=== PATIENT | male | born 1945 | race African-American/Black ===

== ENCOUNTER 2022-01-07 22:23 | Inpatient (IN) | payer MEDICARE, BC ==
[~2022-01-07] VITALS: Ht 175.3 cm; Wt 74.4 kg
[2022-01-07] MEDS ORDERED: FURO20TA4 PO (22:52)
[2022-01-07] MEDS ORDERED: ACET125T3 PO (22:52)
[2022-01-07] MEDS ORDERED: LEVE500T20 PO (22:52)
[2022-01-07] MEDS ORDERED: ENAL-80 PO (22:52)
[2022-01-07] MEDS ORDERED: MEMA10TA PO (22:52)
[2022-01-07] MEDS ORDERED: DONE10TA44 PO (22:52)
--- NOTE | 2022-01-07 23:00 | NUR ---
Pt. BIB ambulance from another ER hospital. VSS at this time. laying in bed, eyes open.
--- NOTE | 2022-01-08 02:03 | NUR ---
Endorsed pt to [facility] from [facility] unit, will transfer pt. to RM 145A, x1 Large BM noted, perineal care done.
[2022-01-08] MEDS ORDERED: MAGNESIUM HYDROXIDE 30 ML LIQUID UDC PO PRN (02:15)
[2022-01-08] MEDS ORDERED: ACETAMINOPHEN 325 MG TABLET PO PRN (02:15)
[2022-01-08] MEDS ORDERED: MAG HYDROX/AL HYDROX/SIMETH 30 ML LIQUID UDC PO PRN (02:15)
[2022-01-08] MEDS ORDERED: TEMAZEPAM 7.5 MG CAPSULE PO PRN (02:15)
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
[2022-01-08 02:54] VITALS: BP 155/79
[2022-01-08 07:30] VITALS: BP 152/79
[2022-01-08 07:59] LABS: MAGNESIUM 1.8 mg/dL (1.8-2.4)
[2022-01-08] MEDS: DIVALPROEX 125 MG TABLET.DR PO SCH ×2 (09:40→21:32)
[2022-01-08] MEDS ORDERED: QUET25TA36 PO (11:14)
[2022-01-08] MEDS ORDERED: ASPI81TA31 PO (11:14)
[2022-01-08] MEDS ORDERED: TAMS-3 PO (11:14)
[2022-01-08] MEDS ORDERED: QUET50TA24 PO (11:14)
[2022-01-08] MEDS: TAMSULOSIN HCL 0.4 MG CAP.SR.24H PO SCH (12:12)
[2022-01-08] MEDS: ASPIRIN 81 MG TAB.CHEW PO SCH (12:12)
[2022-01-08] MEDS: levETIRAcetam 500 MG TABLET PO SCH ×2 (12:12→21:33)
[2022-01-08] MEDS: ENALAPRIL 10 MG TABLET PO SCH (12:12)
[2022-01-08] MEDS: FUROSEMIDE 20 MG TABLET PO SCH (12:12)
[2022-01-08] MEDS: ACETAzolamide 250 MG TABLET PO SCH ×2 (12:13→21:32)
--- NOTE | 2022-01-08 12:14 | NUR ---
GERMAN Initial Discharge Note: Pt currently resides at home located at [address] [place] [address] with his , Maria D ([phone]). Per pt's , Maria D, she would like him to discharge to a memory care unit or mcfp facility. Maria D stated she is looking and will contact the SW to provide further details for continuation of care prior to discharge. GERMAN will continue to work with pt, family and MD to ensure a safe and proper discharge plan.
--- NOTE | 2022-01-08 12:15 | NUR ---
SW Family Contact: Per pt's , Maria D, she would like him to discharge to a memory care unit or correction facility. Maria D stated she is looking and will contact the SW to provide further details for continuation of care prior to discharge.
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
[2022-01-08 16:21] VITALS: BP 132/58
[2022-01-08] MEDS ORDERED: ACETAZOLAMIDE 125 MG PO SCH (17:00)
[2022-01-08 19:59] VITALS: BP 134/72
[2022-01-08] MEDS: QUETIAPINE FUMARATE 25 MG TABLET PO SCH (21:32)
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
[2022-01-09 07:30] VITALS: BP_SYST 104; BP_SYST 132; BP_DIAS 61; BP_DIAS 65
[2022-01-09] MEDS: ACETAzolamide 250 MG TABLET PO SCH ×3 (09:00→16:03)
[2022-01-09] MEDS: levETIRAcetam 500 MG TABLET PO SCH ×3 (09:00→16:03)
[2022-01-09] MEDS: DIVALPROEX 125 MG TABLET.DR PO SCH ×3 (09:00→20:25)
[2022-01-09] MEDS: ASPIRIN 81 MG TAB.CHEW PO SCH ×2 (09:00→09:19)
[2022-01-09] MEDS: FUROSEMIDE 20 MG TABLET PO SCH ×2 (09:00→09:19)
[2022-01-09] MEDS: ENALAPRIL 10 MG TABLET PO SCH ×2 (09:00→09:22)
[2022-01-09] MEDS: TAMSULOSIN HCL 0.4 MG CAP.SR.24H PO SCH ×2 (09:00→09:19)
--- NOTE | 2022-01-09 15:48 | NUR ---
received patient up to dalila-chair in TV room , patient is confused and disoriented ,refused all AM medication , made aware.
[2022-01-09 16:00] VITALS: BP 112/61
[2022-01-09 20:24] VITALS: BP 137/57
[2022-01-09] MEDS: CLONAZEPAM 0.5 MG TABLET PO SCH (20:26)
[2022-01-09] MEDS: QUETIAPINE FUMARATE 25 MG TABLET PO SCH (20:26)
--- NOTE | 2022-01-10 04:44 | NUR ---
Patient is less interactive tonight , than last night. Medication compliant however. Assist with a shower and minimal combativeness noted. Patient was able to feed himself snack and drinks fluids without difficulty. Reorientation ongoing. The patient is disoriented and forgetful. Safety Stratiges are in place. Frequent diaper changes and trips to the bathroom , gait unsteady, bed alarm on . Continuing to monitor this patient for behavior escalation and combativeness with the staff providing care.
[2022-01-10 07:46] VITALS: BP 123/63
[2022-01-10] MEDS: TAMSULOSIN HCL 0.4 MG CAP.SR.24H PO SCH (08:43)
[2022-01-10] MEDS: DIVALPROEX 125 MG TABLET.DR PO SCH ×2 (08:43→21:44)
[2022-01-10] MEDS: levETIRAcetam 500 MG TABLET PO SCH ×2 (08:43→17:00)
[2022-01-10] MEDS: ASPIRIN 81 MG TAB.CHEW PO SCH (08:43)
[2022-01-10] MEDS: FUROSEMIDE 20 MG TABLET PO SCH (08:43)
[2022-01-10] MEDS: ACETAzolamide 250 MG TABLET PO SCH ×2 (08:45→17:00)
[2022-01-10] MEDS: ENALAPRIL 10 MG TABLET PO SCH (08:47)
--- NOTE | 2022-01-10 18:40 | NUR ---
patient is confused and disoriented assisted patient up to dalila-chair, patient able to attend in group activity .denies any SI/HI with poor insight and poor judgement , refused 5 pm medication ,medication education given will continue close monitoring.
[2022-01-10 20:30] VITALS: BP 98/59
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
[2022-01-10] MEDS: QUETIAPINE FUMARATE 25 MG TABLET PO SCH (21:44)
[2022-01-11 07:47] VITALS: BP 120/55
[2022-01-11] MEDS: ASPIRIN 81 MG TAB.CHEW PO SCH (09:11)
[2022-01-11] MEDS: ACETAzolamide 250 MG TABLET PO SCH ×2 (09:11→16:34)
[2022-01-11] MEDS: ENALAPRIL 10 MG TABLET PO SCH (09:11)
[2022-01-11] MEDS: FUROSEMIDE 20 MG TABLET PO SCH (09:11)
[2022-01-11] MEDS: levETIRAcetam 500 MG TABLET PO SCH ×2 (09:11→16:34)
[2022-01-11] MEDS: DIVALPROEX 125 MG TABLET.DR PO SCH ×2 (09:11→20:10)
[2022-01-11] MEDS: TAMSULOSIN HCL 0.4 MG CAP.SR.24H PO SCH (09:12)
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
[2022-01-11 16:12] VITALS: BP 107/62
[2022-01-11 19:55] VITALS: BP 112/59
[2022-01-11] MEDS: QUETIAPINE FUMARATE 25 MG TABLET PO SCH (20:10)
[2022-01-12 07:30] VITALS: BP 142/78
[2022-01-12] MEDS: TAMSULOSIN HCL 0.4 MG CAP.SR.24H PO SCH (08:54)
[2022-01-12] MEDS: FUROSEMIDE 20 MG TABLET PO SCH (08:54)
[2022-01-12] MEDS: ASPIRIN 81 MG TAB.CHEW PO SCH (08:54)
[2022-01-12] MEDS: levETIRAcetam 500 MG TABLET PO SCH ×2 (08:54→16:52)
[2022-01-12] MEDS: DIVALPROEX 125 MG TABLET.DR PO SCH ×3 (08:55→16:52)
[2022-01-12] MEDS: ACETAzolamide 250 MG TABLET PO SCH ×2 (08:55→16:52)
[2022-01-12] MEDS: ENALAPRIL 10 MG TABLET PO SCH (08:55)
[2022-01-12] MEDS: ENSURE ENLIVE (VAN) 240 ML LIQUID PO SCH (14:26)
[2022-01-12 15:38] VITALS: BP 100/54
--- NOTE | 2022-01-12 16:16 | NUR ---
Patient is received awake in the hallway. A/O X 2 to person. Patient is withdrawn, quiet, calm most of time, few angry episodes and outbursts, redirectable, confused, forgetful, disorganized. Patient requires more than minimal assistance with ADL. Emotional support provided. Fall and safety precautions implemented.
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
[2022-01-12 20:26] VITALS: BP 90/48
[2022-01-12] MEDS: QUETIAPINE FUMARATE 25 MG TABLET PO SCH (20:27)
--- NOTE | 2022-01-12 20:30 | NUR ---
RECEIVED PATIENT IN HIS ROOM IN BED. HE IS NOTED AWAKE A/OX1 . HE IS CALM AND COOPERATIVE UPON APPROACHED. HE IS A POOR HISTORIAN, HE REQUIRES REALITY ORIENTATION. NO AGGRESSIVE OR COMBATIVE BX NOTED AT THIS TIME. PATIENT IS UNABLE TO HAVE A MEANINGFUL CONVERSATION WITH THIS BOBBIN CLEANER HAND. HE IS REASSURED FOR HIS SAFETY. SAFETY AND FALL PRECAUTIONS ARE IN PLACE. SUTURES IN LEFT SIDE OF HEAD ARE NOTED DRY AND INTACT. NO S/S OF INFECTION NOTED AT THIS TIME, PATIENT DENIED PAIN. V/S STABLE. HE IS IN NO DISTRESS. HE WAS GIVEN PO FLUIDS AND SNACKS. WILL CONTINUE TO MONITOR.
[2022-01-13 07:30] VITALS: BP 126/75
[2022-01-13] MEDS: ACETAzolamide 250 MG TABLET PO SCH ×2 (08:41→17:17)
[2022-01-13] MEDS: ASPIRIN 81 MG TAB.CHEW PO SCH (08:42)
[2022-01-13] MEDS: ENALAPRIL 10 MG TABLET PO SCH (08:42)
[2022-01-13] MEDS: levETIRAcetam 500 MG TABLET PO SCH ×2 (08:42→17:17)
[2022-01-13] MEDS: DIVALPROEX 125 MG TABLET.DR PO SCH ×3 (08:42→17:17)
[2022-01-13] MEDS: FUROSEMIDE 20 MG TABLET PO SCH (08:42)
[2022-01-13] MEDS: TAMSULOSIN HCL 0.4 MG CAP.SR.24H PO SCH (08:42)
[2022-01-13] MEDS: ENSURE ENLIVE (VAN) 240 ML LIQUID PO SCH (08:43)
[2022-01-13 15:48] VITALS: BP 107/57
--- NOTE | 2022-01-13 16:21 | NUR ---
SW Family Contact: SW called and spoke with pt's Maria D Uriarte ([phone]) to follow-up on choices for SNF or memory care referrals. Pt's states she would like pt to transfer to SNF for now. Pt's will tour [facility] on 01/15/22 around 11am and inform SW which facilities to send referrals.
--- NOTE | 2022-01-13 16:41 | NUR ---
Patient is quiet, non interactive, gets irritable easily, does not like to be told what to do, snaps when medications are given, but take them. A/O X 1 to person. Reassurance given. Fall and safety precautions implemented.
[2022-01-13 20:08] VITALS: BP 100/54
[2022-01-13] MEDS: CLONAZEPAM 0.5 MG TABLET PO SCH (20:55)
[2022-01-13] MEDS: QUETIAPINE FUMARATE 25 MG TABLET PO SCH (20:55)
--- NOTE | 2022-01-14 06:44 | NUR ---
Patient combative with staff providing care this am. Refusing to follow directions, swinging and trying to hit with his fists. Difficult to redirect, paranoid , confused and resistant to assistance. Safety Stratiges are in place . Continuing to monitor for behavior escalation and compliance.
[2022-01-14 07:30] VITALS: BP 124/55
[2022-01-14] MEDS: DIVALPROEX 125 MG TABLET.DR PO SCH ×4 (09:00→17:00)
[2022-01-14] MEDS: ACETAzolamide 250 MG TABLET PO SCH ×3 (09:00→17:00)
[2022-01-14] MEDS: TAMSULOSIN HCL 0.4 MG CAP.SR.24H PO SCH ×2 (09:00→09:26)
[2022-01-14] MEDS: FUROSEMIDE 20 MG TABLET PO SCH ×2 (09:00→09:26)
[2022-01-14] MEDS: ENSURE ENLIVE (VAN) 240 ML LIQUID PO SCH ×2 (09:00→09:28)
[2022-01-14] MEDS: ENALAPRIL 10 MG TABLET PO SCH ×2 (09:00→09:27)
[2022-01-14] MEDS: ASPIRIN 81 MG TAB.CHEW PO SCH ×2 (09:00→09:26)
[2022-01-14] MEDS: levETIRAcetam 500 MG TABLET PO SCH ×3 (09:00→17:00)
--- NOTE | 2022-01-14 12:59 | NUR ---
PC Hearing: Patient had 5250 probable cause hearing on 01/13/22 and it was upheld for grave disability.
--- NOTE | 2022-01-14 15:35 | NUR ---
Patient is withdrawn, quiet, confused, forgetful combative at times, refusing medications. Patient A/O X 2 to person, place. Emotional support provided. Fall and safety precautions implemented.
[2022-01-14 17:27] VITALS: BP 157/86
[2022-01-14 20:59] VITALS: BP 117/43
[2022-01-14] MEDS: QUETIAPINE FUMARATE 25 MG TABLET PO SCH (21:47)
--- NOTE | 2022-01-15 04:00 | NUR ---
Eyes closed, patient has no interaction with staff when his name is called, did not take scheduled PM medication resting at this time.
[2022-01-15 07:30] VITALS: BP 158/75
[2022-01-15] MEDS: ENSURE ENLIVE (VAN) 240 ML LIQUID PO SCH (09:00)
[2022-01-15] MEDS: ASPIRIN 81 MG TAB.CHEW PO SCH (09:00)
[2022-01-15] MEDS: ACETAzolamide 250 MG TABLET PO SCH ×2 (09:00→16:40)
[2022-01-15] MEDS: ENALAPRIL 10 MG TABLET PO SCH (09:00)
[2022-01-15] MEDS: DIVALPROEX 125 MG TABLET.DR PO SCH ×3 (09:00→16:39)
[2022-01-15] MEDS: FUROSEMIDE 20 MG TABLET PO SCH (09:00)
[2022-01-15] MEDS: TAMSULOSIN HCL 0.4 MG CAP.SR.24H PO SCH (09:00)
[2022-01-15] MEDS: levETIRAcetam 500 MG TABLET PO SCH ×2 (09:00→16:39)
--- NOTE | 2022-01-15 09:21 | NUR ---
Tylenol 650 mg was given at 09:11 for fever of 100.8, also Covid swab test was sent to lab. Patient is refusing all medications.
--- NOTE | 2022-01-15 10:04 | NUR ---
SW Family Contact: Received call from pt's Maria D Uriarte ([phone]) requesting referral to [facility]. Pt's will tour [facility] on 01/15/22 around 11am and confirm whether to send referral to [facility].
--- NOTE | 2022-01-15 14:55 | NUR ---
SNF Referrals: SW faxed patient's referral packet including: History and Physical, Consultation, Progress Notes, Medication List and Labs to the following facility for review and possible intermediate placement: [facility] [address] [place] [id number] ([phone]) attn: GERMAN Christina, for review.
--- NOTE | 2022-01-15 15:13 | NUR ---
SNF Referrals: Per pt's 's request, SW faxed patient's referral packet including: History and Physical, Consultation, Progress Notes, Medication List and Labs to the following facility for review and possible mcfp placement: [address] [address] ([phone]) attn: Stephany Ríos for review.
[2022-01-15 16:00] VITALS: BP 141/70
--- NOTE | 2022-01-15 18:53 | NUR ---
Patient is compliant with his 17:00 medications, withdrawn, angry, complains about everything, verbally abusive. Pt. is A/O X 1 to patient. Reassurance given. Fall and safety precautions implemented.
[2022-01-15 20:00] VITALS: BP 111/69
[2022-01-15] MEDS: QUETIAPINE FUMARATE 25 MG TABLET PO SCH (21:12)
--- NOTE | 2022-01-16 06:49 | NUR ---
Compliant with care no aggressive behavior during shift.
[2022-01-16 07:57] VITALS: BP 129/63
[2022-01-16] MEDS: ACETAzolamide 250 MG TABLET PO SCH ×2 (09:04→16:56)
[2022-01-16] MEDS: levETIRAcetam 500 MG TABLET PO SCH ×2 (09:04→16:56)
[2022-01-16] MEDS: ASPIRIN 81 MG TAB.CHEW PO SCH (09:04)
[2022-01-16] MEDS: TAMSULOSIN HCL 0.4 MG CAP.SR.24H PO SCH (09:04)
[2022-01-16] MEDS: ENSURE ENLIVE (VAN) 240 ML LIQUID PO SCH (09:05)
[2022-01-16] MEDS: FUROSEMIDE 20 MG TABLET PO SCH (09:05)
[2022-01-16] MEDS: DIVALPROEX 125 MG TABLET.DR PO SCH ×3 (09:05→16:56)
[2022-01-16] MEDS: ENALAPRIL 10 MG TABLET PO SCH (09:05)
[2022-01-16 16:19] VITALS: BP 121/68
[2022-01-16 19:55] VITALS: BP 100/63
[2022-01-16] MEDS: QUETIAPINE FUMARATE 25 MG TABLET PO SCH (21:32)
[2022-01-17 07:52] VITALS: BP 129/70
[2022-01-17] MEDS: FUROSEMIDE 20 MG TABLET PO SCH (08:42)
[2022-01-17] MEDS: ASPIRIN 81 MG TAB.CHEW PO SCH (08:42)
[2022-01-17] MEDS: levETIRAcetam 500 MG TABLET PO SCH ×2 (08:43→16:44)
[2022-01-17] MEDS: DIVALPROEX 125 MG TABLET.DR PO SCH ×3 (08:43→16:44)
[2022-01-17] MEDS: TAMSULOSIN HCL 0.4 MG CAP.SR.24H PO SCH (08:44)
[2022-01-17] MEDS: ENALAPRIL 10 MG TABLET PO SCH (08:44)
[2022-01-17] MEDS: ACETAzolamide 250 MG TABLET PO SCH ×2 (08:45→16:45)
[2022-01-17] MEDS: GLUCERNA SHAKE 237 ML CAN PO SCH (08:46)
--- NOTE | 2022-01-17 14:41 | NUR ---
patient is confused and disoriented assisted patient up to adlila-chair, patient able to attend in group activity .denies any SI/HI with poor insight and poor judgement ,medication education given will continue close monitoring.
[2022-01-17 16:12] VITALS: BP 109/65
[2022-01-17 20:07] VITALS: BP 112/55
[2022-01-17] MEDS: QUETIAPINE FUMARATE 25 MG TABLET PO SCH (20:32)
[2022-01-18 07:48] VITALS: BP 140/74
[2022-01-18] MEDS: ENALAPRIL 10 MG TABLET PO SCH (08:24)
[2022-01-18] MEDS: FUROSEMIDE 20 MG TABLET PO SCH (08:24)
[2022-01-18] MEDS: TAMSULOSIN HCL 0.4 MG CAP.SR.24H PO SCH (08:24)
[2022-01-18] MEDS: ACETAzolamide 250 MG TABLET PO SCH ×2 (08:24→17:26)
[2022-01-18] MEDS: DIVALPROEX 125 MG TABLET.DR PO SCH (08:25)
[2022-01-18] MEDS: levETIRAcetam 500 MG TABLET PO SCH ×2 (08:25→17:24)
[2022-01-18] MEDS: ASPIRIN 81 MG TAB.CHEW PO SCH (08:25)
[2022-01-18] MEDS: GLUCERNA SHAKE 237 ML CAN PO SCH (08:30)
--- NOTE | 2022-01-18 09:09 | NUR ---
GERMAN Discharge Update: GERMAN called [facility] [address] [facility] [place] [address] ([phone]) and spoke with GERMAN Christina/marketing and outreach coordinator, who informed they are unable to accept pt due to not having enough CNAs at this time. Carri will contact GERMAN if bed availability changes, though not likely to change. per Carri.
--- NOTE | 2022-01-18 12:06 | NUR ---
GERMAN Discharge Update: GERMAN called [facility] [address] [place] [address] [phone]) and left voice mail for Sara, clinical nursing coordinator, and Nur[employer] community ambassador, requesting call back to follow-up on referral.
--- NOTE | 2022-01-18 12:08 | NUR ---
SW Family Contact: SW called and spoke with pt's , Maria D ([phone]) and provided updates to discharge plan. Maria D is currently visiting another facility and will call this SW to inform whether or not to send a referral.
--- NOTE | 2022-01-18 12:56 | NUR ---
SNF Referrals: Per pt's 's request, SW faxed patient's referral packet including: Consultation, Progress Notes, Medication List and Labs to the following facility for review and possible half-way placement: [facility] [address] [place] [address] (p: [phone], f: [phone]) attn: Segundo Bustamante for review.
--- NOTE | 2022-01-18 15:50 | NUR ---
Received patient is confused and disoriented assisted patient up to dalila-chair, patient able to attend in group activity .denies any SI/HI with poor insight and poor judgement ,medication education given will continue close monitoring.
[2022-01-18 16:09] VITALS: BP 124/71
[2022-01-18] MEDS ORDERED: DIVALPROEX 125 MG TABLET.DR PO SCH (17:00)
[2022-01-18] MEDS: DIVALPROEX 250 MG TABLET.DR PO SCH (17:24)
[2022-01-18 20:00] VITALS: BP 114/66
[2022-01-18] MEDS: QUETIAPINE FUMARATE 25 MG TABLET PO SCH (20:26)
--- NOTE | 2022-01-18 20:40 | NUR ---
RECEIVED PATIENT IN HIS ROOM IN BED. HE IS NOTED SLEEPING BUT EASILY AROUSABLE. HE IS NOTED A/O X 1. HE IS CALM, PLEASANT AND COOPERATIVE UPON APPROACHED. PATIENT IS A POOR HISTORIAN. HE IS UNABLE TO HAVE A MEANINGFUL CONVERSATION WITH THIS CORD MAKER. HIS V/S ARE STABLE. PT IN NO DISTRESS. HE WAS GIVEN PO FLUIDS SNACKS AND ENSURE. PT US REASSURED FOR HIS SAFETY. SAFETY AND FALL PRECAUTIONS ARE IN PLACE. WILL CONTINUE TO MONITOR.
[2022-01-19 07:30] VITALS: BP 133/82
[2022-01-19] MEDS: FUROSEMIDE 20 MG TABLET PO SCH (08:42)
[2022-01-19] MEDS: ENALAPRIL 10 MG TABLET PO SCH (08:42)
[2022-01-19] MEDS: ACETAzolamide 250 MG TABLET PO SCH ×2 (08:42→17:07)
[2022-01-19] MEDS: DIVALPROEX 250 MG TABLET.DR PO SCH ×2 (08:42→17:08)
[2022-01-19] MEDS: ASPIRIN 81 MG TAB.CHEW PO SCH (08:42)
[2022-01-19] MEDS: TAMSULOSIN HCL 0.4 MG CAP.SR.24H PO SCH (08:43)
[2022-01-19] MEDS: levETIRAcetam 500 MG TABLET PO SCH ×2 (08:43→17:07)
[2022-01-19] MEDS: GLUCERNA SHAKE 237 ML CAN PO SCH (08:44)
--- NOTE | 2022-01-19 10:10 | NUR ---
GERMAN Discharge Update: GERMAN called [facility] [address] [place] [address] ([phone]) and left message for Sara early childhood coordinator, to follow-up on referral. Received call from Alessandra early childhood coordinator with [facility] [address] [place] [address] ([phone]. [phone]) requesting call back. GERMAN called Alessandra and left voice mail to follow-up on referral. Addendum: 01/19/22 at 1153 by ROBERT Jaquez Received voice mail from Alessandra early childhood coordinator with [facility]
--- NOTE | 2022-01-19 11:53 | NUR ---
SW Discharge Update: GERMAN called and spoke with Alessandra, advertising coordinator with [facility] [address] [place] [address] ([phone]. [phone]) to follow-up on referral and was informed they are unable to accommodate due to pt's severe dementia. GERMAN called and spoke with pt's , Maria D ([phone]) and provided update. Per request, GERMAN faxed pt's referral packet including History and Physical, Consultation Notes, Psychiatrist Progress Notes, Medications, and Labs to [facility] [address], [place] [address] (p: [phone], f: [phone]) attn: Alma with admissions for review.
--- NOTE | 2022-01-19 13:11 | NUR ---
SNF Referrals: SW faxed pt's SNF referral packet including History and Physical, Consultation Notes, Psychiatrist Progress Notes, Medications, and Labs to the following facilities for review possible SNF placement: [facility] [address] [place] [address] ([phone]) fax: [phone] attn: Delia; [facility] [address] [place] [address] ([phone]) fax: [phone] attn: Mariaa; [facility] [address] [place] [address] ([phone]) fax: [phone] attn: tonie; [facility] [address] [place] [address] ([phone]) [phone] attn: [facility] [address] [place] [address] ([phone]) [facility]: [facility] [address] [place] [address] ([phone]) fax: [phone] attn: admissions.
--- NOTE | 2022-01-19 14:42 | NUR ---
SW Discharge Update: SW received call from Alma with [facility] [address], [place] [address] (p: [phone], f: [phone]) who informed they do not have male beds available; however, will contact [facility] in [place], their [facility] facility to confirm whether they can accept pt.
--- NOTE | 2022-01-19 15:00 | NUR ---
Patient is withdrawn, selective mute, depressed, verbally abusive at times. Patient is compliant with medications and takes them one by one. Pt. is A/O X 2 to person. Reality orientation provided. Fall and safety precautions implemented.
[2022-01-19 16:45] VITALS: BP 106/67
[2022-01-19 20:02] VITALS: BP 101/60
[2022-01-19] MEDS: QUETIAPINE FUMARATE 25 MG TABLET PO SCH (20:25)
--- NOTE | 2022-01-20 07:10 | NUR ---
PATIENT SLEPT FOR APPROX 7.45 HRS THROUGH THE NIGHT. PATIENT IS ABLE TO ACCEPT CARE. NO AGGRESSIVE OR COMBATIVE BX NOTED DURING THE SHIFT. PATIENT IS COMPLAINT WITH HIS MEDICATION REGIMENT DIET AND PLAN OF CARE. WILL CONTINUE TO MONITOR.
[2022-01-20 07:26] LABS: PHOSPHOROUS 3.1 mg/dL (2.5-4.9)
[2022-01-20 07:30] VITALS: BP 141/74
[2022-01-20 08:31] LABS: HEMATOCRIT 35.6 % (36.7-47.1); MEAN CORPUSCULAR HEMOGLOBIN 32.5 uug (23.8-33.4); MEAN CORPUSCULAR VOLUME 98.3 fL (73.0-96.2); PLATELET COUNT (AUTO) 158 K/uL (152-348)
[2022-01-20] MEDS: TAMSULOSIN HCL 0.4 MG CAP.SR.24H PO SCH (08:31)
[2022-01-20] MEDS: FUROSEMIDE 20 MG TABLET PO SCH (08:31)
[2022-01-20] MEDS: DIVALPROEX 250 MG TABLET.DR PO SCH ×2 (08:31→17:39)
[2022-01-20] MEDS: ENALAPRIL 10 MG TABLET PO SCH (08:31)
[2022-01-20] MEDS: levETIRAcetam 500 MG TABLET PO SCH ×2 (08:32→17:26)
[2022-01-20] MEDS: ASPIRIN 81 MG TAB.CHEW PO SCH (08:32)
[2022-01-20] MEDS: ACETAzolamide 250 MG TABLET PO SCH ×2 (08:32→17:26)
[2022-01-20] MEDS: GLUCERNA SHAKE 237 ML CAN PO SCH (08:36)
[2022-01-20 08:55] LABS: NEUTROPHILS % (MANUAL) 0 % (42-75)
--- NOTE | 2022-01-20 10:09 | NUR ---
GERMAN Family Contact: SW received call from pt's , Maria D ([phone]) requesting referral to [facility]. SW confirmed referral has been sent to [facility] and [facility] along with several other facilities near [facility]. Pt's verbalized understanding.
--- NOTE | 2022-01-20 11:10 | NUR ---
SW Discharge Update: SW received call from Rhonda, curriculum development coordinator at [address] [address] ([phone]) confirming they are able to accept pt upon discharge. Pt will be under care of Dr. Ashley, psychiatrist, and Dr. Dobson, die mounter.
--- NOTE | 2022-01-20 12:47 | NUR ---
SW Family Contact: SW received call from pt's , Maria D ([phone]) and provided discharge plan updates regarding discharge to [facility] [address] [place], [place] [address] [address] ([phone]). Pt's verbalized understanding and is in agreement with discharge plan.
--- NOTE | 2022-01-20 15:27 | NUR ---
Patient is withdrawn, quiet, verbally abusive at times, irritable, angry, compliant with medications. A/O X 2 to person, place. Patient requires more than minimal assistance with ADL. Reassurance given. Fall and safety precautions implemented.
[2022-01-20 16:00] VITALS: BP 111/68
[2022-01-20 19:55] VITALS: BP 111/66
[2022-01-20] MEDS: QUETIAPINE FUMARATE 25 MG TABLET PO SCH (20:10)
[2022-01-21 07:30] VITALS: BP_SYST 106; BP_SYST 111; BP_DIAS 63; BP_DIAS 65
[2022-01-21] MEDS: DIVALPROEX 250 MG TABLET.DR PO SCH ×2 (09:28→17:09)
[2022-01-21] MEDS: ACETAzolamide 250 MG TABLET PO SCH ×2 (09:28→17:09)
[2022-01-21] MEDS: levETIRAcetam 500 MG TABLET PO SCH ×2 (09:28→17:09)
[2022-01-21] MEDS: ASPIRIN 81 MG TAB.CHEW PO SCH (09:28)
[2022-01-21] MEDS: TAMSULOSIN HCL 0.4 MG CAP.SR.24H PO SCH (09:28)
[2022-01-21] MEDS: FUROSEMIDE 20 MG TABLET PO SCH (09:29)
[2022-01-21] MEDS: ENALAPRIL 10 MG TABLET PO SCH (09:29)
[2022-01-21] MEDS: GLUCERNA SHAKE 237 ML CAN PO SCH (09:33)
--- NOTE | 2022-01-21 12:56 | NUR ---
WOUND CARE CONSULT: PT REFUSED SKIN ASSESSMENT. REVIEWED CHART, NURSING DOCUMENTATION AND PHOTO WHICH INDICATES INCONTINENCE ASSOCIATED SKIN DAMAGE TO BUTTOCKS. RECOMMENDATIONS MADE FOR SKIN PROTECTION. DISCUSSED WITH NURSING STAFF. MD IN AGREEMENT WITH PLAN OF CARE.
--- NOTE | 2022-01-21 13:03 | NUR ---
SNF Referrals: Per pt's 's request, SW faxed pt's SNF referral packet including History and Physical, Consultation Notes, Psychiatrist Progress Notes, Medications, and Labs to the following facilities for review possible SNF placement: [facility] [address] [place] [address] ([phone]) attn: Bharath; [facility] [address] [place] [address] ([phone]) attn: Renate.
--- NOTE | 2022-01-21 13:14 | NUR ---
GERMAN Discharge Update: GERMAN spoke with Bharath, information coordinator with [facility] [address] [place] [address] ([phone]) who informed they are unable to accept pt due to no bed availability.
--- NOTE | 2022-01-21 14:28 | NUR ---
SNF Referrals: hBarath with [facility] ([phone]) informed sister facility [facility] of need for bed. GERMAN faxed pt's SNF referral packet including History and Physical, Consultation Notes, Psychiatrist Progress Notes, Medications, and Labs to the following facility for review possible SNF placement: [address] [address] ([phone]) attn: Kathe. GERMAN called [facility] on and spoke with Renate, junior project coordinator, who confirmed referral was received; Renate will check with her DON to confirm whether or not they can accept pt.
--- NOTE | 2022-01-21 14:37 | NUR ---
GERMAN Family Contact: GERMAN called and spoke with pt's , Maria D ([phone]) regarding discharge plan. GERMAN faxed additional referrals per pt request and explained that pt will continue to transfer tomorrow. GERMAN explained to pt's if no other facility is found, pt will be transferred to the one accepting facility, [facility]; otherwise, pt may be financially responsible for additional days in MHU. Pt's verbalized understanding.
--- NOTE | 2022-01-21 15:49 | NUR ---
Patient is quiet, irritable, angry, combative with nursing care, compliant with medications. Patient requires total care. Emotional support provided. Fall and safety precautions implemented.
[2022-01-21 16:51] VITALS: BP 116/48
[2022-01-21] MEDS: CLONAZEPAM 0.5 MG TABLET PO SCH (20:02)
[2022-01-21] MEDS: REMEDY ESSENTIAL ZINC PASTE 113 GM TOP SCH (20:26)
[2022-01-21 20:43] VITALS: BP 108/84
[2022-01-21] MEDS: QUETIAPINE FUMARATE 25 MG TABLET PO SCH (20:45)
--- NOTE | 2022-01-21 21:08 | NUR ---
GPS: Remains confused,disoriented and disorganized. Poor insight to present situation. Compliant with bedtime meds. Anxious and restless at times. Re-directed and re-assured prn. Incontinence care rendered. Turned and repositioned for comfort. Fall precautions observed. No aggressive behavior noted.
[2022-01-22 07:30] VITALS: BP 122/74
[2022-01-22] MEDS: TAMSULOSIN HCL 0.4 MG CAP.SR.24H PO SCH (08:32)
[2022-01-22] MEDS: DIVALPROEX 250 MG TABLET.DR PO SCH (08:32)
[2022-01-22] MEDS: levETIRAcetam 500 MG TABLET PO SCH (08:32)
[2022-01-22] MEDS: FUROSEMIDE 20 MG TABLET PO SCH (08:32)
[2022-01-22] MEDS: ASPIRIN 81 MG TAB.CHEW PO SCH (08:32)
[2022-01-22 08:33] VITALS: BP 122/74
[2022-01-22] MEDS: ENALAPRIL 10 MG TABLET PO SCH (08:33)
[2022-01-22] MEDS: ACETAzolamide 250 MG TABLET PO SCH (08:33)
[2022-01-22] MEDS: REMEDY ESSENTIAL ZINC PASTE 113 GM TOP SCH ×2 (08:34→11:02)
[2022-01-22] MEDS: GLUCERNA SHAKE 237 ML CAN PO SCH (08:34)
--- NOTE | 2022-01-22 09:06 | NUR ---
GERMAN Discharge Update: GERMAN spoke with Renate with [facility] [address] [facility] [place] [address] ([phone]) who informed they are able to accept pt. GERMAN spoke with Nessa, admissions coordinators with [facility] [address] [place] [address] ([phone]) who confirmed they are able to accept pt. Per pt's 's request, GERMAN called [facility] [place] [address] [place] [address] ([phone]) [phone] and spoke with Abhay to follow-up on referral. Per request, GERMAN re-faxed referral attn: Abhay.
--- NOTE | 2022-01-22 11:56 | NUR ---
SW Discharge Update: SW received call from pt's Maria D ([phone]) informing [facility] [address] [place] [address] ([phone]) confirmed they are unable to accept pt and his level of care needs. Pt's agreed for [facility] to [facility] to [facility] [address] [address] ([phone]).
--- NOTE | 2022-01-22 11:58 | NUR ---
GERMAN Final Discharge Note: Pt [facility] [place] [address] [facility] [facility] [place] [address] ([phone]) via Ambulance transportation at 3PM. GERMAN spoke with Renate, admin coordinator at the facility, who states they are ready to accept the patient today in room 15A. Pt and pts wer aware and agreeable with discharge plan. Pt is alert and oriented x1, is unable to plan for self-care at this time. However, pt is willing to accept care at SNF. Pt denies any suicidal or homicidal ideation. Pt will follow-up at the facility with Psychiatrist, Dr. Martinez, and Cordwood Cutter Helper, Dr. Branham. Pt presents with calm mood and congruent affect.
--- NOTE | 2022-01-22 16:04 | NUR ---
Received orders to discharge this patient to the [facility] at [address] [place] [address] ([phone]) via [facility] transportation at 3PM. Patient was agreeable with discharge plans, but refused to sign all discharge documents. All belongings were returned to patient. Pt. denies SI/HI AH/VH, SOB, pain or any discomfort. Emotional support provided. Fall and safety precautions implemented.
[2022-01-23] MEDS ORDERED: DIVA250T4 PO (14:07)
== END 2022-01-22 16:00 | DRG 885 ==
LOC: ER 22:23 → GPS 23:59
PROVIDERS: ADMIT Nurse Practitioner Psychiatric/Mental Health; ATTEND Registered Nurse
DX: F29 Unspecified psychosis not due to a substance or known physiological condition (principal); I11.0 Hypertensive heart disease with heart failure; F02.82 Dementia in other diseases classified elsewhere, unspecified severity, with psychotic disturbance; G30.9 Alzheimer's disease, unspecified; E11.9 Type 2 diabetes mellitus without complications; I50.9 Heart failure, unspecified; Z88.0 Allergy status to penicillin; Z20.822 Contact with and (suspected) exposure to COVID-19; N40.0 Benign prostatic hyperplasia without lower urinary tract symptoms; S01.01XD Laceration without foreign body of scalp, subsequent encounter; X58.XXXD Exposure to other specified factors, subsequent encounter; Z91.199 Patient's noncompliance with other medical treatment and regimen due to unspecified reason
CPT/HCPCS: 36415; 70030-TC; 80164; 83735; 84100; 85025; J3490; J8499

== ENCOUNTER 2022-01-22 17:31 | Inpatient (IN) | payer MEDICARE, BC ==
[~2022-01-22] VITALS: Ht 175.3 cm; Wt 74.8 kg
[~2022-01-22 17:31] MED LIST: ACET125T3 PO; ASPI81TA31 PO; ENAL-80 PO; FURO20TA4 PO; LEVE500T20 PO; QUET25TA36 PO; QUET50TA24 PO; TAMS-3 PO
[2022-01-22] MEDS ORDERED: ACETAMINOPHEN 325 MG TABLET PO PRN (18:30)
[2022-01-22] MEDS ORDERED: REMEDY ESSENTIAL ZINC PASTE 113 GM TP PRN (18:30)
[2022-01-22] MEDS ORDERED: ONDANSETRON 4 MG/2 ML VIAL IV PRN (18:30)
[2022-01-22] MEDS ORDERED: MAGNESIUM HYDROXIDE 30 ML LIQUID UDC PO PRN (18:30)
--- NOTE | 2022-01-22 18:30 | NUR ---
Pt refused EKG and saline lock. Pt became agitated and combative.
--- NOTE | 2022-01-22 18:35 | NUR ---
Pt refused blood draw per lab.
--- NOTE | 2022-01-22 18:45 | NUR ---
Blood specimens were drawn by hospital fellow with assistance of nursing staff.
[2022-01-22 19:03] LABS: HEMATOCRIT 35.1 % (36.7-47.1); MEAN CORPUSCULAR HEMOGLOBIN 32.1 uug (23.8-33.4); PLATELET COUNT (AUTO) 206 K/uL (152-348)
[2022-01-22 19:07] LABS: NEUTROPHILS % (MANUAL) 0 % (42-75)
[2022-01-22 19:12] LABS: CREATININE 1.1 mg/dL (0.6-1.3); POTASSIUM 3.9 mmol/L (3.5-5.1)
[2022-01-22 19:18] LABS: BILIRUBIN,TOTAL 0.3 mg/dL (0.2-1.0); TOTAL PROTEIN, SERUM 6.7 g/dL (6.4-8.2)
[2022-01-22] MEDS ORDERED: levETIRAcetam 250 MG TABLET PO ONE (19:30)
[2022-01-22] MEDS ORDERED: DIVALPROEX 250 MG TABLET.DR PO ONE ×2 (19:30→21:47)
[2022-01-22] MEDS ORDERED: QUETIAPINE FUMARATE 25 MG TABLET PO ONE (19:30)
[2022-01-22] MEDS ORDERED: levETIRAcetam 250 MG TABLET ONE (21:46)
[2022-01-22] MEDS ORDERED: QUETIAPINE FUMARATE 25 MG TABLET ONE (21:47)
--- NOTE | 2022-01-22 22:25 | NUR ---
Report given to Shreyas GILLILAND MedSurg.
--- NOTE | 2022-01-23 07:00 | NUR ---
Admitted to room 318; covid isolation; incontinence care done; safety maintained; report to be given to Vignesh GILLILAND
[2022-01-23 07:43] LABS: HEMATOCRIT 33.9 % (36.7-47.1); MEAN CORPUSCULAR HEMOGLOBIN 32.5 uug (23.8-33.4); MEAN CORPUSCULAR VOLUME 98.6 fL (73.0-96.2); PLATELET COUNT (AUTO) 192 K/uL (152-348)
[2022-01-23 08:05] LABS: CARBON DIOXIDE 25 mmol/L (21-32); CHLORIDE 111 mmol/L (98-107); GLUCOSE 107 mg/dL (74-106); PHOSPHOROUS 3.1 mg/dL (2.5-4.9); POTASSIUM 3.9 mmol/L (3.5-5.1); UREA NITROGEN, BLOOD 25 mg/dL (7-18)
[2022-01-23 11:35] VITALS: BP 108/76
[2022-01-23] MEDS ORDERED: levETIRAcetam 500 MG TABLET PO SCH (13:00)
[2022-01-23] MEDS ORDERED: TAMSULOSIN HCL 0.4 MG CAP.SR.24H PO SCH (13:00)
[2022-01-23] MEDS ORDERED: FUROSEMIDE 20 MG TABLET PO SCH (13:00)
[2022-01-23] MEDS ORDERED: ASPIRIN 81 MG TAB.CHEW PO SCH (13:00)
[2022-01-23] MEDS ORDERED: QUETIAPINE FUMARATE 25 MG TABLET PO SCH ×2 (13:00→21:00)
[2022-01-23] MEDS ORDERED: ACETAzolamide 250 MG TABLET PO SCH (13:00)
[2022-01-23] MEDS ORDERED: ENALAPRIL 10 MG TABLET PO SCH (13:00)
[2022-01-23] MEDS ORDERED: DIVA250T4 PO (14:07)
[2022-01-23] MEDS ORDERED: DIVALPROEX 250 MG TABLET.DR PO SCH (14:15)
[2022-01-23 16:38] VITALS: BP 133/48
[2022-01-27 12:11] LABS: NEUTROPHILS % (MANUAL) 0 % (42-75)
== END 2022-01-23 19:15 | DRG 178 ==
LOC: ER 17:31 → MEDSURG3 19:50
PROVIDERS: ADMIT Nurse Practitioner Acute Care; ATTEND Nurse Practitioner Acute Care
DX: U07.1 COVID-19 (principal); F02.82 Dementia in other diseases classified elsewhere, unspecified severity, with psychotic disturbance; G30.9 Alzheimer's disease, unspecified; E11.9 Type 2 diabetes mellitus without complications; I11.0 Hypertensive heart disease with heart failure; I50.9 Heart failure, unspecified; N40.0 Benign prostatic hyperplasia without lower urinary tract symptoms; Z91.199 Patient's noncompliance with other medical treatment and regimen due to unspecified reason; S01.01XD Laceration without foreign body of scalp, subsequent encounter; X58.XXXD Exposure to other specified factors, subsequent encounter; F29 Unspecified psychosis not due to a substance or known physiological condition; Z20.822 Contact with and (suspected) exposure to COVID-19
CPT/HCPCS: 36415; 70030-TC; 71045; 83735; 84100; 85025; 93005; A4663; A6213; G0378; J3490; J8499; U0003